=== PATIENT | male | born 1955 | race African-American/Black ===

== ENCOUNTER 2019-06-23 17:12 | Inpatient (IN) | payer OTHER ==
[~2019-06-23] VITALS: Ht 175.3 cm; Wt 130.2 kg
[2019-06-23] MEDS ORDERED: ACETAMINOPHEN 325MG TABLET PO ONE (18:15)
[2019-06-23] MEDS ORDERED: FUROSEMIDE 40MG/4ML VIAL IV ONE (18:15)
[2019-06-23] MEDS ORDERED: SODIUM CHLORIDE 0.9% 1000ML BAG (SEPSIS BOLUS) IV ONE (18:15)
[2019-06-23] MEDS ORDERED: LEVOFLOXACIN 750MG PREMIX 150 ML IV ONE (18:15)
[2019-06-23] MEDS ORDERED: NITROGLYCERIN OINT 1GM/INCH UDPKT TD ONE (18:15)
[2019-06-23] MEDS ORDERED: ASPIRIN 81MG TABLET PO ONE (18:15)
[2019-06-23 18:28] LABS: HEMATOCRIT. 35.2 % (42.0-52.0); HEMOGLOBIN. 11.8 g/dL (14.0-18.0); MEAN CORPUSCULAR VOLUME 80.6 fL (80.0-94.0); MEAN PLATELET VOLUME 7.8 fl (7.4-10.4); PLATELET 220 x1000/uL (130-400); RED BLOOD CELL COUNT 4.37 mill/uL (4.7-6.1); RED CELL DISTRIBUTION WIDTH 16.8 % (11.6-14.6)
[2019-06-23 18:29] LABS: CHLORIDE 110 mEq/L (98-107)
[2019-06-23 18:31] LABS: PROTHROMBIN TIME 10.7 sec (9.6-11.0)
[2019-06-23 18:57] LABS: PLATELET ESTIMATE NORMAL
[2019-06-23 19:47] LABS: CLARITY URINE CLEAR (CLEAR); COLOR URINE YELLOW (YELLOW); KETONES URINE NEGATIVE (NEGATIVE); LEUKOCYTE ESTERASE URINE NEGATIVE (NEGATIVE); NITRITE URINE NEGATIVE (NEGATIVE); OCCULT BLOOD URINE 2+ (NEGATIVE); PROTEIN URINE 4+ (NEGATIVE); SPECIFIC GRAVITY URINE 1.016 (1.005-1.030); UROBILINOGEN URINE 0.2 E.U./dL (0.2-1.0)
[2019-06-24] VITALS (7 sets, daily range): BP systolic 108–143; BP diastolic 43–66
[2019-06-24] MEDS ORDERED: MIDAZOLAM HCL 50 MG in DEXTROSE 5% WATER 40 ML IV ONE (00:45)
[2019-06-24] MEDS ORDERED: ACETAMINOPHEN 325MG TABLET PO PRN (04:00)
[2019-06-24] MEDS ORDERED: CEFTRIAXONE 1 G PREMIX 50 ML IV SCH (04:00)
[2019-06-24] MEDS: AZITHROMYCIN 500MG in DEXTROSE 5% WATER 250ML IV SCH (04:30)
[2019-06-24] MEDS ORDERED: ACETAMINOPHEN 650MG/20.3ML UDC GT PRN (05:45)
[2019-06-24] MEDS ORDERED: IPRATROPIUM/ALBUTEROL 0.5-3(2.5)MG/3ML NEB HHN PRN (05:45)
[2019-06-24] MEDS ORDERED: GUAIFENESIN 200MG/10ML SUGAR FREE UDC PO PRN (05:45)
[2019-06-24] MEDS ORDERED: MAGNESIUM/ALUMINUM HYDROXIDE/SIMETHICONE 30ML UDC PO PRN (05:45)
[2019-06-24] MEDS ORDERED: DOCUSATE SODIUM 100MG CAPSULE PO PRN (05:45)
[2019-06-24] MEDS ORDERED: NA PHOS,M-B/NA PHOS,DI-BA ENEMA 118ML PR PRN (05:45)
[2019-06-24] MEDS ORDERED: ACETAMINOPHEN 650MG SUPP PR PRN (05:45)
[2019-06-24] MEDS ORDERED: CLONIDINE 0.1MG TABLET PO PRN (05:45)
[2019-06-24] MEDS ORDERED: ALBUTEROL (0.083%) 2.5MG/3ML NEB HHN SCH (06:00)
[2019-06-24] MEDS: SODIUM CHLORIDE 0.9% INJ 3ML FLUSH IVF SCH ×3 (06:00→21:02)
[2019-06-24] MEDS: IPRATROPIUM/ALBUTEROL 0.5-3(2.5)MG/3ML NEB NEB SCH ×3 (09:20→21:18)
[2019-06-24] MEDS: ENOXAPARIN 30MG/0.3ML SYR SUBCUT SCH (09:25)
[2019-06-24] MEDS ORDERED: PIPERACILLIN/TAZOBACTAM 3.375GM/50ML PREMIX IV SCH (09:45)
[2019-06-24] MEDS ORDERED: DEXTROSE 50% WATER 50ML SYRINGE IV PRN (09:45)
[2019-06-24] MEDS: BLOOD SUGAR DIAGNOSTIC STRIP TEST SCH ×3 (12:17→20:17)
[2019-06-24] MEDS: PIPERACILLIN/TAZOBACTAM 2.25 G in DEXTROSE 5% WATER 50 ML IV SCH ×2 (12:33→18:24)
[2019-06-24] MEDS: INSULIN LISPRO 100 UNITS/ML SUBCUT SCH ×3 (12:34→20:18)
[2019-06-24 14:23] LABS: HEMATOCRIT. 33.8 % (42.0-52.0); HEMOGLOBIN. 11.2 g/dL (14.0-18.0); MEAN CORPUSCULAR HEMOGLOBIN 26.8 pg (28.0-32.0); MEAN CORPUSCULAR VOLUME 81.1 fL (80.0-94.0); MEAN PLATELET VOLUME 8.3 fl (7.4-10.4); PLATELET 156 x1000/uL (130-400); RED BLOOD CELL COUNT 4.17 mill/uL (4.7-6.1); RED CELL DISTRIBUTION WIDTH 16.9 % (11.6-14.6)
[2019-06-24 14:39] LABS: PLATELET ESTIMATE NORMAL
[2019-06-24 15:02] LABS: T4 FREE 0.95 ng/dL (0.76-1.46)
[2019-06-24] MEDS: ACETAMINOPHEN 325MG TABLET PO PRN (17:00)
[2019-06-24 17:38] LABS: CREATINE KINASE MB FRACTION 4.5 ng/mL (0.5-3.6)
[2019-06-24] MEDS ORDERED: FAMOTIDINE 20MG/2ML VIAL IV ONE (17:45)
[2019-06-24] MEDS ORDERED: FAMOTIDINE 20MG/2ML VIAL IV NR (17:47)
[2019-06-24] MEDS: ONDANSETRON HCL 4MG/2ML INJ IV PRN (17:48)
[2019-06-25] VITALS (12 sets, daily range): BP systolic 102–155; BP diastolic 21–85
[2019-06-25] MEDS: IPRATROPIUM/ALBUTEROL 0.5-3(2.5)MG/3ML NEB NEB SCH ×4 (00:35→21:08)
[2019-06-25] MEDS: PIPERACILLIN/TAZOBACTAM 2.25 G in DEXTROSE 5% WATER 50 ML IV SCH ×4 (00:44→17:56)
[2019-06-25] MEDS: AZITHROMYCIN 500MG in DEXTROSE 5% WATER 250ML IV SCH (05:34)
[2019-06-25] MEDS: ACETAMINOPHEN 325MG TABLET PO PRN (05:35)
[2019-06-25] MEDS: ONDANSETRON HCL 4MG/2ML INJ IV PRN ×3 (05:35→20:40)
[2019-06-25] MEDS: SODIUM CHLORIDE 0.9% INJ 3ML FLUSH IVF SCH ×3 (05:42→20:56)
[2019-06-25 06:09] LABS: HEMATOCRIT. 34.5 % (42.0-52.0); HEMOGLOBIN. 11.4 g/dL (14.0-18.0); MEAN CORPUSCULAR HEMOGLOBIN 26.9 pg (28.0-32.0); MEAN PLATELET VOLUME 8.5 fl (7.4-10.4); PLATELET 152 x1000/uL (130-400); RED BLOOD CELL COUNT 4.25 mill/uL (4.7-6.1); RED CELL DISTRIBUTION WIDTH 17.9 % (11.6-14.6)
[2019-06-25] MEDS: HYDROCODONE/ACETAMINOPHEN 5/325MG TABLET PO PRN ×2 (06:12→20:41)
[2019-06-25 06:18] LABS: CHLORIDE 107 mEq/L (98-107)
[2019-06-25 06:26] LABS: HDL CHOLESTEROL 11 mg/dL (40-59); LDL CHOLESTEROL 28 mg/dL (5-100)
[2019-06-25] MEDS: BLOOD SUGAR DIAGNOSTIC STRIP TEST SCH ×4 (07:56→20:38)
[2019-06-25] MEDS: ENOXAPARIN 30MG/0.3ML SYR SUBCUT SCH (08:22)
[2019-06-25] MEDS: INSULIN LISPRO 100 UNITS/ML SUBCUT SCH ×4 (08:22→20:57)
[2019-06-25] MEDS: SODIUM CHLORIDE 0.9% 1,000 ML IV SCH (09:15)
[2019-06-25 10:27] LABS: PLATELET ESTIMATE NORMAL
[2019-06-25] MEDS ORDERED: POTASSIUM CHLORIDE 20MEQ TABLET SR PO NR (10:30)
[2019-06-25] MEDS: CLOPIDOGREL 75MG TABLET PO SCH (14:34)
[2019-06-25 15:29] LABS: CLARITY URINE CLOUDY (CLEAR); COLOR URINE YELLOW (YELLOW); KETONES URINE NEGATIVE (NEGATIVE); LEUKOCYTE ESTERASE URINE NEGATIVE (NEGATIVE); NITRITE URINE NEGATIVE (NEGATIVE); OCCULT BLOOD URINE 2+ (NEGATIVE); PH URINE 5.5 (4.5-8.0); PROTEIN URINE 3+ (NEGATIVE); SPECIFIC GRAVITY URINE 1.015 (1.005-1.030); UROBILINOGEN URINE 0.2 E.U./dL (0.2-1.0)
[2019-06-25 15:48] LABS: *AMPHETAMINES SCREEN URINE NEGATIVE (NEGATIVE); *BARBITURATES SCREEN URINE NEGATIVE (NEGATIVE); *BENZODIAZEPINES SCREEN URINE NEGATIVE (NEGATIVE); *COCAINE SCREEN URINE NEGATIVE (NEGATIVE); METHADONE URINE SCREEN NEGATIVE (NEGATIVE)
[2019-06-25 15:49] LABS: CANNABINOID URINE SCREEN NEGATIVE (NEGATIVE); OPIATES URINE SCREEN PRESUMTIVE POSITIVE (NEGATIVE); PHENCYCLIDINE URINE SCREEN NEGATIVE (NEGATIVE)
[2019-06-25] MEDS ORDERED: NPH,100I SQ ×2 (17:48)
[2019-06-25] MEDS ORDERED: METO25TA6 MT (17:48)
[2019-06-25] MEDS ORDERED: ASPI-1393 MT (17:48)
[2019-06-25] MEDS ORDERED: FERR325T6 MT (17:48)
[2019-06-25] MEDS ORDERED: LOSA25TA26 MT (17:48)
[2019-06-25] MEDS ORDERED: ASCO100T12 PO (17:48)
[2019-06-25] MEDS ORDERED: SIMV20TA6 MT (17:48)
[2019-06-25] MEDS ORDERED: GLIP5TAB12 MT (17:48)
[2019-06-25] MEDS ORDERED: OMEP20CA5 MT (17:48)
[2019-06-25] MEDS ORDERED: FURO20TA4 MT (17:48)
[2019-06-25] MEDS ORDERED: CHOL200010 MT (17:48)
[2019-06-25] MEDS ORDERED: SILD20TA MT (17:48)
[2019-06-25] MEDS: INSULIN GLARGINE UD 100 UNITS/ML SYR SUBCUT SCH (23:08)
[2019-06-26] VITALS (10 sets, daily range): BP systolic 104–152; BP diastolic 62–88
[2019-06-26] MEDS: PIPERACILLIN/TAZOBACTAM 2.25 G in DEXTROSE 5% WATER 50 ML IV SCH ×3 (00:29→13:03)
[2019-06-26] MEDS: IPRATROPIUM/ALBUTEROL 0.5-3(2.5)MG/3ML NEB NEB SCH ×3 (02:06→16:32)
[2019-06-26] MEDS: SODIUM CHLORIDE 0.9% 1,000 ML IV SCH (03:32)
[2019-06-26] MEDS: AZITHROMYCIN 500MG in DEXTROSE 5% WATER 250ML IV SCH (03:33)
[2019-06-26] MEDS: SODIUM CHLORIDE 0.9% INJ 3ML FLUSH IVF SCH ×2 (05:23→14:04)
[2019-06-26] MEDS: ONDANSETRON HCL 4MG/2ML INJ IV PRN (06:18)
[2019-06-26] MEDS: HYDROCODONE/ACETAMINOPHEN 5/325MG TABLET PO PRN (06:20)
[2019-06-26 06:54] LABS: BASOPHILS % 0.3 % (0.0-2.0); EOSINOPHILS % 1.3 % (0.0-5.0); HEMATOCRIT. 32.1 % (42.0-52.0); HEMOGLOBIN. 10.9 g/dL (14.0-18.0); LYMPHOCYTES % 7.5 % (20.0-50.0); MEAN CORPUSCULAR HEMOGLOBIN 27.1 pg (28.0-32.0); MEAN CORPUSCULAR VOLUME 80.1 fL (80.0-94.0); MEAN PLATELET VOLUME 8.9 fl (7.4-10.4); MONOCYTES % 6.3 % (2.0-8.0); NEUTROPHILS % 84.6 % (40.0-76.0); PLATELET 168 x1000/uL (130-400); RED BLOOD CELL COUNT 4.01 mill/uL (4.7-6.1); RED CELL DISTRIBUTION WIDTH 17.6 % (11.6-14.6)
[2019-06-26 07:15] LABS: CHLORIDE 104 mEq/L (98-107)
[2019-06-26 07:37] LABS: PHOSPHORUS 3.3 mg/dL (2.5-4.9)
[2019-06-26] MEDS: BLOOD SUGAR DIAGNOSTIC STRIP TEST SCH ×2 (08:02→12:01)
[2019-06-26] MEDS: CLOPIDOGREL 75MG TABLET PO SCH (08:30)
[2019-06-26] MEDS: INSULIN LISPRO 100 UNITS/ML SUBCUT SCH ×2 (08:34→13:04)
[2019-06-26] MEDS ORDERED: ASPIRIN 81MG TABLET PO SCH (09:00)
[2019-06-26] MEDS ORDERED: ENOXAPARIN 40MG/0.4ML SYR SUBCUT SCH (09:00)
[2019-06-26] MEDS: INSULIN GLARGINE UD 100 UNITS/ML SYR SUBCUT SCH (10:31)
[2019-06-26] MEDS ORDERED: INSULIN GLARGINE UD 100 UNITS/ML SYR SUBCUT NR (13:00)
[2019-06-26] MEDS ORDERED: POTASSIUM CHLORIDE 20MEQ TABLET SR PO NR (14:30)
[2019-06-26] MEDS ORDERED: INSULIN GLARGINE UD 100 UNITS/ML SYR SUBCUT SCH (22:00)
[2019-06-27 09:06] LABS: *CREATININE RANDOM URINE 82.7 mg/dL (Not Estab.); MICROALBUMIN RANDOM URINE 1888.4 ug/mL (Not Estab.)
== END 2019-06-26 17:20 | disposition short-term general hospital (02) | DRG 871 ==
LOC: ER 17:12 → 5EST 06-24 01:11 → ENRESERV 06-24 04:39
PROVIDERS: ADMIT Family Medicine; ATTEND Family Medicine
DX: A41.50 Gram-negative sepsis, unspecified (principal); J96.00 Acute respiratory failure, unspecified whether with hypoxia or hypercapnia; E44.0 Moderate protein-calorie malnutrition; Z68.41 Body mass index [BMI] 40.0-44.9, adult; I13.0 Hypertensive heart and chronic kidney disease with heart failure and stage 1 through stage 4 chronic kidney disease, or unspecified chronic kidney disease; N17.9 Acute kidney failure, unspecified; N18.4 Chronic kidney disease, stage 4 (severe); D64.9 Anemia, unspecified; E11.22 Type 2 diabetes mellitus with diabetic chronic kidney disease; E66.9 Obesity, unspecified; E78.00 Pure hypercholesterolemia, unspecified; E78.5 Hyperlipidemia, unspecified; E87.6 Hypokalemia; G47.33 Obstructive sleep apnea (adult) (pediatric); I50.9 Heart failure, unspecified; Z79.4 Long term (current) use of insulin; Z80.9 Family history of malignant neoplasm, unspecified; Z83.3 Family history of diabetes mellitus; Z87.891 Personal history of nicotine dependence; Z96.643 Presence of artificial hip joint, bilateral; J44.9 Chronic obstructive pulmonary disease, unspecified
CPT/HCPCS: 36415; 71045; 74018; 76770; 78582; 80048; 80061; 80305; 81003; 82043; 82550; 82553; 82570; 82962; 83036; 83605; 83735; 83880; 84100; 84145; 84156; 84300; 84439; 84443; 84484; 85379; 87015; 87045; 87077; 87186; 87427; 87449; 87493; 93005; 93306; 93970; 94640; 94660; 96361; 96374; 96375; 99291; A9558; J0456; J0696; J1650; J1815; J1940; J1956; J2250; J2405; J2543; J3490; J7030; J7040; J7060; J7620

== ENCOUNTER 2019-12-24 13:14 | Emergency (ER) | payer OTHER ==
[~2019-12-24] VITALS: Ht 172.7 cm; Wt 136.0 kg
[~2019-12-24 13:14] MED LIST: ASCO100T12 PO; ASPI-1497 MT; CHOL200010 MT; FERR325T6 MT; FURO20TA4 MT; GLIP5TAB12 MT; LOSA25TA26 MT; METO25TA6 MT; NPH,100I SQ; OMEP20CA14 MT; SILD20TA MT; SIMV-43 MT
[2019-12-24] MEDS ORDERED: LORAZEPAM 1MG TABLET PO ONE (15:00)
[2019-12-24] MEDS ORDERED: METOCLOPRAMIDE HCL 10MG/2ML VIAL IM ONE (15:00)
[2019-12-24] MEDS ORDERED: ONDANSETRON 4MG ODT PO ONE (15:00)
[2019-12-24 17:35] VITALS: BP 158/99
== END 2019-12-24 17:36 | disposition home or self-care (01) ==
LOC: ER 13:26
DX: R11.2 Nausea with vomiting, unspecified (principal); I12.0 Hypertensive chronic kidney disease with stage 5 chronic kidney disease or end stage renal disease; E11.22 Type 2 diabetes mellitus with diabetic chronic kidney disease; N18.6 End stage renal disease; F41.9 Anxiety disorder, unspecified; Z03.818 Encounter for observation for suspected exposure to other biological agents ruled out; Z79.82 Long term (current) use of aspirin; Z99.2 Dependence on renal dialysis; Z79.4 Long term (current) use of insulin
CPT/HCPCS: 71045; 99283; J2765; Q0162

== ENCOUNTER 2025-05-21 16:19 | Inpatient (IN) | payer OTHER ==
[2025-05-21] VITALS (9 sets, daily range): BP systolic 151–193; BP diastolic 77–138; PULSE 80–107; RESP 20–29; TEMP 36.8072; O2SAT 98–100
[~2025-05-21] VITALS: Ht 172.7 cm; Wt 119.5 kg
[~2025-05-21 16:19] MED LIST changes: -GLIP5TAB12 MT; +GLIP5TAB22 MT; -SILD20TA MT; +SILD20TA41 MT
[2025-05-21 17:15] LABS: HEMATOCRIT. 35.2 % (42.0-52.0); HEMOGLOBIN. 11.3 g/dL (14.0-18.0); MEAN PLATELET VOLUME 8.0 fl (7.4-10.4); PLATELET 241 x1000/uL (130-400); RED BLOOD CELL COUNT 4.01 mill/uL (4.7-6.1); RED CELL DISTRIBUTION WIDTH 16.1 % (11.6-14.6)
[2025-05-21 17:21] LABS: INR 1.0
[2025-05-21 17:30] LABS: UREA NITROGEN BLOOD 51 mg/dL (9-23)
[2025-05-21 17:31] LABS: ASPARTATE AMINOTRANSFERASE 70 IU/L (<34)
[2025-05-21 17:32] LABS: BILIRUBIN DIRECT 0.3 mg/dL (<=3.0); BILIRUBIN TOTAL 0.7 mg/dL (0.1-1.0); PROTEIN TOTAL 7.6 g/dL (6.0-8.3)
[2025-05-21 17:33] LABS: TROPONIN I HIGH SENSITIVITY 16784 ng/L (3.0-53)
[2025-05-21 17:34] LABS: CREATININE 9.9 mg/dL (0.6-1.3)
[2025-05-21] MEDS ORDERED: AZITHROMYCIN 500MG/250ML 250 ML IV STA (17:42)
[2025-05-21 17:58] LABS: LYMPHOCYTES % MANUAL 8.0 % (20.0-50.0); MONOCYTES % MANUAL 4.0 % (2.0-8.0); NEUTROPHILS % MANUAL 88.0 % (45.0-75.0); PLATELET ESTIMATE NORMAL
[2025-05-21] MEDS: CEFTRIAXONE 1GM/50ML 50 ML IV STA (18:32)
[2025-05-21] MEDS ORDERED: ASPIRIN 325MG TABLET PO ONE (18:45)
[2025-05-21] MEDS ORDERED: HEPARIN 5000 UNITS/ML VIAL IV SCH (18:45)
[2025-05-21] MEDS ORDERED: HEPARIN 25,000 UNITS PREMIX 250 ML IV PRN (18:45)
[2025-05-21 19:22] LABS: TROPONIN I HIGH SENSITIVITY 14067 ng/L (3.0-53)
[2025-05-21] MEDS: AZITHROMYCIN 500MG/250ML 250 ML IV SCH (19:36)
[2025-05-21] MEDS: HEPARIN 60 UNITS/KG BOLUS IV SCH (20:49)
[2025-05-21] MEDS: HEPARIN 25,000 UNITS PREMIX 250 ML IV SCH (21:17)
[2025-05-21] MEDS: ASPIRIN 325MG TABLET PO SCH (21:58)
[2025-05-21] MEDS ORDERED: ACETAMINOPHEN 325MG TABLET PO PRN ×2 (22:00)
[2025-05-21] MEDS ORDERED: ONDANSETRON HCL 4MG/2ML INJ IV PRN (22:00)
[2025-05-21] MEDS ORDERED: IPRATROPIUM/ALBUTEROL 0.5-3(2.5)MG/3ML NEB HHN PRN (22:00)
[2025-05-21] MEDS ORDERED: HYDRALAZINE 20MG/ML VIAL IV PRN (22:00)
[2025-05-21] MEDS ORDERED: DEXTROSE 50% WATER 50ML SYRINGE IV PRN (22:00)
[2025-05-21] MEDS ORDERED: DOCUSATE SODIUM 100MG CAPSULE PO PRN (22:00)
[2025-05-21] MEDS ORDERED: MAGNESIUM/ALUMINUM HYDROXIDE/SIMETHICONE 30ML UDC PO PRN (22:00)
[2025-05-21] MEDS ORDERED: SODIUM POLYSTYRENE SULFONATE 15 G/60 ML BOT PO ONE (22:00)
[2025-05-21] MEDS: SODIUM CHLORIDE 0.45% 250 ML IV ONE (22:15)
[2025-05-21 22:48] LABS: FOLIC ACID (FOLATE) SERUM 14.18 ng/mL (>5.38); VITAMIN B12 SERUM 567 pg/mL (211-911)
[2025-05-21] MEDS: HYDRALAZINE HCL 50MG TABLET PO SCH (23:20)
[2025-05-21] MEDS: SODIUM ZIRCONIUM CYCLOSILICATE 10GM/PACKET PO SCH (23:21)
[2025-05-22] VITALS (73 sets, daily range): BP systolic 115–183; BP diastolic 63–114; PULSE 64–102; RESP 12–27; TEMP 36.55848–36.9; O2SAT 97–100
[2025-05-22 03:23] LABS: TROPONIN I HIGH SENSITIVITY 15692 ng/L (3.0-53)
[2025-05-22 06:02] LABS: BASOPHILS % 0.4 % (0.0-2.0); EOSINOPHILS % 0.5 % (0.0-5.0); HEMATOCRIT. 27.7 % (42.0-52.0); HEMOGLOBIN. 9.2 g/dL (14.0-18.0); LYMPHOCYTES % 16.5 % (20.0-50.0); MEAN PLATELET VOLUME 7.9 fl (7.4-10.4); MONOCYTES % 8.3 % (2.0-8.0); NEUTROPHILS % 74.3 % (40.0-76.0); PLATELET 193 x1000/uL (130-400); RED BLOOD CELL COUNT 3.17 mill/uL (4.7-6.1); RED CELL DISTRIBUTION WIDTH 15.7 % (11.6-14.6)
[2025-05-22] MEDS: HEPARIN BOLUS PRN aPTT 30-44 IV (06:14)
[2025-05-22 06:22] LABS: TRIGLYCERIDE 78.0 mg/dL (0-150); UREA NITROGEN BLOOD 58.0 mg/dL (9-23)
[2025-05-22 06:23] LABS: LDL CHOLESTEROL 51.0 mg/dL (5-100)
[2025-05-22 06:24] LABS: PHOSPHORUS 5.4 mg/dL (2.5-4.9)
[2025-05-22 06:26] LABS: T4 FREE 1.21 ng/dL (0.89-1.76)
[2025-05-22 07:21] LABS: CREATININE 10.2 mg/dL (0.6-1.3)
[2025-05-22 07:22] LABS: TROPONIN I HIGH SENSITIVITY 17194.0 ng/L (3.0-53)
[2025-05-22] MEDS: BLOOD SUGAR DIAGNOSTIC STRIP TEST SCH (07:50)
[2025-05-22] MEDS ORDERED: DOXYCYCLINE 100MG/100ML 100 ML IV SCH (08:00)
[2025-05-22] MEDS: INSULIN LISPRO 100 UNITS/ML SUBCUT SCH (08:06)
[2025-05-22] MEDS: IPRATROPIUM/ALBUTEROL 0.5-3(2.5)MG/3ML NEB HHN SCH (08:29)
[2025-05-22 08:31] LABS: HEPATITIS C AB NON REACTIVE (Neg) (Negative)
[2025-05-22] MEDS ORDERED: METOPROLOL TARTRATE 25MG TABLET PO SCH (09:00)
[2025-05-22] MEDS ORDERED: LIDOCAINE HCL 1% 10 MG/ML 10ML VIAL ONE (09:08)
[2025-05-22 09:24] LABS: HEPATITIS A AB IGM NEGATIVE (Negative)
[2025-05-22 09:25] LABS: HEPATITIS B CORE AB IGM NEGATIVE (Negative)
[2025-05-22] MEDS: NITROGLYCERIN OINT 1GM/INCH UDPKT TD SCH (10:16)
[2025-05-22] MEDS: METOPROLOL TARTRATE 25MG TABLET PO SCH (10:16)
[2025-05-22] MEDS: ASPIRIN 81MG EC TABLET PO SCH (10:17)
[2025-05-22] MEDS: DOXYCYCLINE 100MG/100ML 100 ML IV SCH (12:52)
[2025-05-22] MEDS: CALCIUM ACETATE 667MG CAPSULE PO SCH (12:55)
[2025-05-22 14:09] LABS: BG BASE EXCESS -2.3 mmol/L (-2.0-3.0); BG CARBOXYHEMOGLOBIN 1.2 % (0.5-1.5); BG DEOXYHEMOGLOBIN 2.8 % (0.0-5.0); BG FLOW(L/min) 2.00 L/min; BG FRACTION INSPIRED OXYGEN 40; BG HCO3 ACT 21.5 mmol/L (21.0-28.0); BG METHEMOGLOBIN 0.3 % (0.5-1.5); BG OXYGEN SATURATION 97.2 % (94.0-98.0); BG OXYHEMOGLOBIN 95.7 % (94.0-98.0); BG PCO2 33.9 mmHg (35.0-48.0); BG PH 7.421 (7.350-7.450); BG PO2 96.1 mmHg (83.0-108.0); BG SAMPLE SITE RIGHT RADIAL; BG TOTAL HEMOGLOBIN 11.0 g/dL (13.5-17.5); BG VENT MODE NASAL CANNULA
[2025-05-22] MEDS: CEFTRIAXONE 1GM/50ML 50 ML IV SCH (17:15)
[2025-05-22] MEDS ORDERED: CEFTRIAXONE 1GM/50ML 50 ML IV SCH (18:00)
[2025-05-22] MEDS: CLONIDINE 0.1MG TABLET PO PRN (18:20)
[2025-05-22] MEDS: HEPARIN BOLUS PRN aPTT <30 IV (18:35)
[2025-05-22 20:43] LABS: TROPONIN I HIGH SENSITIVITY 11235 ng/L (3.0-53)
[2025-05-22] MEDS ORDERED: ATORVASTATIN CALCIUM 40MG TABLET PO SCH (21:00)
[2025-05-22] MEDS: ATORVASTATIN CALCIUM 40MG TABLET PO SCH (21:38)
[2025-05-23] VITALS (77 sets, daily range): BP systolic 94–146; BP diastolic 61–99; PULSE 62–91; RESP 10–27; TEMP 36.55848–37.1; O2SAT 90–100
[2025-05-23 06:10] LABS: BASOPHILS % 1.5 % (0.0-2.0); EOSINOPHILS % 2.3 % (0.0-5.0); HEMATOCRIT. 27.5 % (42.0-52.0); HEMOGLOBIN. 9.2 g/dL (14.0-18.0); LYMPHOCYTES % 15.3 % (20.0-50.0); MEAN PLATELET VOLUME 7.6 fl (7.4-10.4); MONOCYTES % 7.0 % (2.0-8.0); NEUTROPHILS % 73.9 % (40.0-76.0); PLATELET 196 x1000/uL (130-400); RED BLOOD CELL COUNT 3.19 mill/uL (4.7-6.1); RED CELL DISTRIBUTION WIDTH 15.9 % (11.6-14.6)
[2025-05-23 06:31] LABS: TRIGLYCERIDE 68 mg/dL (0-150); UREA NITROGEN BLOOD 64 mg/dL (9-23)
[2025-05-23 06:32] LABS: LDL CHOLESTEROL 44 mg/dL (5-100)
[2025-05-23 07:06] LABS: CREATININE 11.9 mg/dL (0.6-1.3); TROPONIN I HIGH SENSITIVITY 8061 ng/L (3.0-53)
[2025-05-23] MEDS: HEPARIN BOLUS PRN aPTT 30-44 IV (11:32)
[2025-05-23] MEDS: HEPARIN 25,000 UNITS PREMIX 250 ML IV SCH (11:37)
[2025-05-23] MEDS ORDERED: HEPARIN 1000 UNITS/ML 10ML ONE (14:49)
[2025-05-23] MEDS ORDERED: IODIXANOL 320MG/ML 100 ML BOTTLE IV ONE (14:49)
[2025-05-23] MEDS ORDERED: LIDOCAINE HCL 1% 20ML VIAL ONE (14:49)
[2025-05-23] MEDS ORDERED: MIDAZOLAM HCL 2 MG/2 ML VIAL ONE ×2 (15:15→15:44)
[2025-05-23] MEDS ORDERED: FENTANYL CITRATE/PF 50MCG/ML 2ML VIAL ONE ×2 (15:15→15:44)
[2025-05-23] MEDS ORDERED: ONDANSETRON HCL 4MG/2ML INJ IV PRN (16:15)
[2025-05-23] MEDS ORDERED: ACETAMINOPHEN 325MG TABLET PO PRN (16:15)
[2025-05-23] MEDS ORDERED: ATROPINE SULFATE 1MG/10ML SYR IV PRN (16:15)
[2025-05-23] MEDS: EPOETIN ALFA-EPBX 4,000 UNITS/ML VIAL SUBCUT SCH (21:35)
[2025-05-23 23:44] LABS: HEPATITIS A AB IGM NEGATIVE (Negative); HEPATITIS B CORE AB IGM NEGATIVE (Negative); HEPATITIS C AB NON REACTIVE (Neg) (Negative)
[2025-05-24] VITALS (58 sets, daily range): BP systolic 84–143; BP diastolic 59–111; PULSE 70–94; RESP 11–23; TEMP 36.9–37.44744; O2SAT 82–100
[2025-05-24 05:43] LABS: BASOPHILS % 0.5 % (0.0-2.0); EOSINOPHILS % 3.4 % (0.0-5.0); HEMATOCRIT. 27.7 % (42.0-52.0); HEMOGLOBIN. 9.1 g/dL (14.0-18.0); LYMPHOCYTES % 12.5 % (20.0-50.0); MEAN PLATELET VOLUME 8.0 fl (7.4-10.4); MONOCYTES % 8.0 % (2.0-8.0); NEUTROPHILS % 75.6 % (40.0-76.0); PLATELET 208 x1000/uL (130-400); RED BLOOD CELL COUNT 3.19 mill/uL (4.7-6.1); RED CELL DISTRIBUTION WIDTH 15.8 % (11.6-14.6)
[2025-05-24 06:09] LABS: UREA NITROGEN BLOOD 61.0 mg/dL (9-23)
[2025-05-24 06:43] LABS: CREATININE 10.6 mg/dL (0.6-1.3); TROPONIN I HIGH SENSITIVITY 5907.0 ng/L (3.0-53)
[2025-05-24] MEDS ORDERED: ASPI-1497 MT (14:31)
[2025-05-24] MEDS ORDERED: METO25TA6 MT (14:31)
[2025-05-24] MEDS ORDERED: ATOR-388 MT (14:31)
== END 2025-05-24 17:30 | disposition home or self-care (01) | DRG 871 ==
LOC: ER 16:26 → EDBEDREQSVC 18:14 → ER 19:52 → CVICU 20:21 → EDBEDREQTM 20:24 → EDBEDREQ 20:24 → EDBEDREQSVC 20:24 → ENRESERV 20:40 → CVICU 05-23 08:00
PROVIDERS: ADMIT Internal Medicine; ATTEND Internal Medicine
PROC: 5A09357 Assistance with Respiratory Ventilation, Less than 24 Consecutive Hours, Continuous Positive Airway Pressure (ICD-10-PCS; 2025-05-21)
PROC: 5A09357 Assistance with Respiratory Ventilation, Less than 24 Consecutive Hours, Continuous Positive Airway Pressure (ICD-10-PCS; 2025-05-22)
PROC: 02HV33Z Insertion of Infusion Device into Superior Vena Cava, Percutaneous Approach (ICD-10-PCS; 2025-05-22)
PROC: B548ZZA Ultrasonography of Superior Vena Cava, Guidance (ICD-10-PCS; 2025-05-22)
PROC: 5A1D70Z Performance of Urinary Filtration, Intermittent, Less than 6 Hours Per Day (ICD-10-PCS; 2025-05-22)
PROC: 4A023N7 Measurement of Cardiac Sampling and Pressure, Left Heart, Percutaneous Approach (ICD-10-PCS; principal; 2025-05-23)
PROC: B211YZZ Fluoroscopy of Multiple Coronary Arteries using Other Contrast (ICD-10-PCS; 2025-05-23)
PROC: B215YZZ Fluoroscopy of Left Heart using Other Contrast (ICD-10-PCS; 2025-05-23)
PROC: 5A1D70Z Performance of Urinary Filtration, Intermittent, Less than 6 Hours Per Day (ICD-10-PCS; 2025-05-23)
PROC: 5A1D70Z Performance of Urinary Filtration, Intermittent, Less than 6 Hours Per Day (ICD-10-PCS; 2025-05-24)
DX: A41.9 Sepsis, unspecified organism (principal); I21.4 Non-ST elevation (NSTEMI) myocardial infarction; N18.6 End stage renal disease; J15.9 Unspecified bacterial pneumonia; J96.21 Acute and chronic respiratory failure with hypoxia; E87.20 Acidosis, unspecified; J44.0 Chronic obstructive pulmonary disease with (acute) lower respiratory infection; I13.2 Hypertensive heart and chronic kidney disease with heart failure and with stage 5 chronic kidney disease, or end stage renal disease; J44.1 Chronic obstructive pulmonary disease with (acute) exacerbation; D63.1 Anemia in chronic kidney disease; E11.22 Type 2 diabetes mellitus with diabetic chronic kidney disease; E87.5 Hyperkalemia; E66.09 Other obesity due to excess calories; F17.210 Nicotine dependence, cigarettes, uncomplicated; I25.10 Atherosclerotic heart disease of native coronary artery without angina pectoris; G47.33 Obstructive sleep apnea (adult) (pediatric); I16.0 Hypertensive urgency; I44.4 Left anterior fascicular block; I50.9 Heart failure, unspecified; Z68.37 Body mass index [BMI] 37.0-37.9, adult; Z91.148 Patient's other noncompliance with medication regimen for other reason
CPT/HCPCS: 36415; 36573; 36600; 71045; 80048; 80061; 80076; 82375; 82550; 82607; 82728; 82746; 82805; 82962; 83036; 83540; 83550; 83605; 83735; 83880; 84100; 84145; 84146; 84439; 84443; 84484; 85025; 86705; 86709; 87070; 87340; 90935; 93005; 93458; 93970; 94070; 94640; 94660; 94664; 96365; 96367; 98960; 99291; A4606; C1725; C1769; C1887; C1893; J0456; J0696; J0885; J1644; J1815; J2003; J2250; J3010; J3490; Q9967